=== PATIENT | female | born 1935 | race African-American/Black ===

== ENCOUNTER 2018-06-01 21:17 | Inpatient (IN) | payer OTHER ==
[~2018-06-01] VITALS: Ht 162.6 cm; Wt 84.9 kg
--- NOTE | 2018-06-01 21:25 | NUR ---
PT [id number] FROM HOME. Found Pt on the floor BS 26. 1 AMP of Glucagon given on route. Last BS 60. PT AxOX4. RR even and unlabored. PT pending eval from .
[2018-06-01] MEDS ORDERED: DEXTROSE 50%-WATER 50 ML DISP.SYRIN IV ONE (21:30)
--- NOTE | 2018-06-01 21:30 | NUR ---
Pt taken to CT.
[2018-06-01] MEDS ORDERED: DEXTROSE 50%-WATER 50 ML DISP.SYRIN ONE (21:37)
--- NOTE | 2018-06-01 21:40 | NUR ---
PT returned from CT. NAD.
[2018-06-01 22:06] LABS: BASOPHILS # (AUTO) 0.1 /CMM (0.0-0.2); BASOPHILS % (AUTO) 0.5 % (0.0-2.0); EOSINOPHILS % (AUTO) 0.4 % (0.0-6.0); HEMATOCRIT 33 % (33-45); HEMOGLOBIN 10.7 g/dL (11.5-14.8); LYMPHOCYTES # (AUTO) 2.2 /CMM (0.8-4.8); LYMPHOCYTES % (AUTO) 17.2 % (20.0-44.0); MEAN CORPUSCULAR HGB CONC 32 g/dl (31.0-36.0); MEAN CORPUSCULAR VOLUME 88 fL (82-100); MONOCYTES # (AUTO) 0.3 /CMM (0.1-1.30); MONOCYTES % (AUTO) 2.4 % (2.0-12.0); NEUTROPHILS # (AUTO) 10.1 /CMM (1.8-8.9); NEUTROPHILS % (AUTO) 79.5 % (43.0-81.0); PLATELET COUNT (AUTO) 499 /CMM (150-450); RED BLOOD CELL COUNT(AUTO) 3.78 MIL/uL (4.0-5.2); WHITE BLOOD COUNT (AUTO) 12.7 K/uL (4.3-11.0)
--- NOTE | 2018-06-01 22:21 | NUR ---
Repeated BS 163. PT resting in bed. VSS.
--- NOTE | 2018-06-01 23:02 | NUR ---
PT IS ASSIGNED TO [facility]#: [id number]
--- NOTE | 2018-06-01 23:05 | NUR ---
Patient is resting comfortably in bed with eyes closed. Easily aroused. VSS
[2018-06-01 23:24] LABS: APPEARANCE,URINE TURBID (CLEAR); BILIRUBIN,URINE NEGATIVE (NEGATIVE); BLOOD, URINE 3+ Ery/uL (NEGATIVE); COLOR,URINE YELLOW (YELLOW); KETONES,URINE TRACE (NEGATIVE); LEUKOCYTE ESTERASE ,URINE 2+ (NEGATIVE); NITRITE, URINE NEGATIVE (NEGATIVE); PROTEIN,URINE 2+ mg/dl (NEGATIVE); UGLUCOSE TRACE mg/dL (NEGATIVE); UROBILINOGEN,URINE 0.2 EU/dL (0.2)
--- NOTE | 2018-06-01 23:25 | NUR ---
Patient is resting comfortably in bed with eyes closed. NAD, VSS, awaiting test results.
[2018-06-01] MEDS ORDERED: TRAM50TA2 PO (23:30)
[2018-06-01] MEDS ORDERED: GLIP10TA11 PO (23:30)
[2018-06-01] MEDS ORDERED: ACET-2605 PO (23:30)
[2018-06-01] MEDS ORDERED: FAMO-131 PO (23:30)
[2018-06-01] MEDS ORDERED: METF-440 PO (23:30)
[2018-06-01] MEDS ORDERED: AMLO10TA6 PO (23:30)
[2018-06-01] MEDS ORDERED: HALO5TAB PO (23:30)
[2018-06-01] MEDS ORDERED: MONT10TA22 PO (23:30)
[2018-06-01] MEDS ORDERED: ASPI-605 PO (23:30)
[2018-06-01 23:31] LABS: BACTERIA,URINE Few /HPF (None Seen); RBC,URINE 81-100 /HPF (0-2); SQUAMOUS EPITHELIAL CELL,UR Few /HPF (None Seen); WBC,URINE 81-100 /HPF (0-3)
[2018-06-01 23:36] LABS: CALCIUM, SERUM 9.8 mg/dL (8.5-10.1); CARBON DIOXIDE 30 mmol/L (21-32); CHLORIDE 97 mmol/L (98-107); CREATININE 1.1 mg/dL (0.6-1.3); GLUCOSE 130 mg/dL (74-106); POTASSIUM 3.9 mmol/L (3.5-5.1); SODIUM SERUM 132 mmol/L (136-145); UREA NITROGEN, BLOOD 19 mg/dL (7-18)
[2018-06-01 23:42] LABS: ALANINE AMINOTRANSFERASE 19 U/L (12-78); ALBUMIN 2.1 g/dL (3.4-5.0); ALKALINE PHOSPHATASE 107 U/L (46-116); ASPARTATE AMINOTRANSFERASE 21 U/L (15-37); BILIRUBIN,DIRECT 0.2 mg/dL (0.0-0.2); BILIRUBIN,TOTAL 0.5 mg/dL (0.2-1.0); TOTAL PROTEIN, SERUM 8.6 g/dL (6.4-8.2)
[2018-06-01 23:46] LABS: ACETAMINOPHEN 2 ug/ml (10-30); SALICYLATE 1.6 mg/dL (2.8-20.0)
--- NOTE | 2018-06-01 23:55 | NUR ---
PT in bed resting, BS 92, easily aroused, VSS. NAD.
[2018-06-01 23:59] LABS: ALCOHOL, BLOOD 0 mg/dL (0-0)
[2018-06-02] VITALS (7 sets, daily range): BP systolic 118–149; BP diastolic 50–80
--- NOTE | 2018-06-02 00:14 | NUR ---
Report given to Hanny COMER for NEIL.
[2018-06-02] MEDS ORDERED: CEFTRIAXONE 1GM BAG (ER ONLY) 50 ML IV ONE (00:23)
[2018-06-02] MEDS: CEFTRIAXONE 1GM BAG (ER ONLY) 1 GM/50 ML PIGGYBACK IV ONE ×2 (00:30→00:50)
--- NOTE | 2018-06-02 00:45 | NUR ---
RN NOTES ADMITTED A 83 YEARS OLD FEMALE PT FROM ER VIA RNEY, AWAKE ALERT AND ORIENTED X3. DENIES PAIN, NAUSEA AND VOMITING AT THIS TIME. TELE MONITOR ATTACHED WHICH READS SINUS RHYTHM WITH PAC'S WITH HEART RATE AT 91. IV ACCESS ON LEFT FOREARM PATENT AND INTACT. COLOSTOMY LEAKING, BAG CHANGED. CURRIE CATH INTACT WITH HOPE COLORED URINE OUTPUT NOTED. KIN ASSESSMENT DONE, NOTED WITH PRESSURE ULCER ON BILATERAL BUTTOCKS, CLEANSED WITH NS AND COVERED WITH MEPILEX, PICTURE TAKEN AND FILED IN THE CHART. BED BATH GIVEN TO THE PATIENT. ALL ORDERS NOTED AND CARRIED OUT. WILL CONTINUE TO MONITOR PATIENT.
--- NOTE | 2018-06-02 00:45 | NUR ---
TRANSPORTED PT TO [facility] [id number] WITH RADHA COMER. ON THE RTALMOON WHILE BEING MONITORED
[2018-06-02] MEDS ORDERED: IV D5/0.45 NACL 1,000 ML IV PRN (00:50)
[2018-06-02] MEDS ORDERED: ACETAMINOPHEN 325 MG TABLET PO PRN (01:00)
[2018-06-02] MEDS ORDERED: Z GUARD REMEDY 2 OZ OINT TP PRN (01:00)
[2018-06-02] MEDS ORDERED: HALOPERIDOL 5 MG TABLET PO PRN (01:00)
[2018-06-02] MEDS ORDERED: MAGNESIUM HYDROXIDE 30 ML UDC PO PRN (01:00)
[2018-06-02] MEDS ORDERED: HYDROCODONE/APAP 5/325MG 1 EACH TABLET PO PRN (01:00)
[2018-06-02] MEDS ORDERED: DEXTROSE 50%-WATER 50 ML DISP.SYRIN IV PRN (01:00)
[2018-06-02] MEDS ORDERED: ZOLPIDEM TARTRATE 5 MG TABLET PO PRN (01:00)
[2018-06-02] MEDS ORDERED: MAG HYDROX/AL HYDROX/SIMETH 30 ML UDC PO PRN (01:00)
[2018-06-02] MEDS ORDERED: ONDANSETRON HCL/PF 4 MG/2 ML VIAL IVP PRN (01:00)
[2018-06-02] MEDS ORDERED: TRAMADOL HCL 50 MG TABLET PO PRN (01:00)
[2018-06-02] MEDS ORDERED: ENOXAPARIN SODIUM 40 MG/0.4 ML DISP.SYRIN SQ ONE (01:30)
[2018-06-02] MEDS: BLOOD SUGAR DIAGNOSTIC 1 EACH STRIP IN SCH ×6 (02:28→23:15)
[2018-06-02] MEDS: INSULIN REGULAR, HUMAN 100 UNIT/ML 3 ML VIAL SQ PRN ×3 (06:12→23:11)
--- NOTE | 2018-06-02 06:16 | NUR ---
tele/rn blood sugar check at 181 with 3 units coverage, patient with d5iv
--- NOTE | 2018-06-02 07:30 | NUR ---
LANDSCAPE GARDENER OPENING NOTES NO SIGNS OF DISTRESS AND DISCOMFORT NOTED. CURRIE CATH IN PLACE , COLOSTOMY NOT LEAKING. PT CLEAN AND DRY.SAFETY PRECAUTIONS OBSERVED. WILL CONTINUE TO MONITOR
--- NOTE | 2018-06-02 07:31 | NUR ---
RN NOTES PATIENT SLEPT WELL, NO SIGNS OF DISTRESS AND DISCOMFORT NOTED. CURRIE CATH INTACT, COLOSTOMY NOT LEAKING. KEPT CLEAN AND DRY, TURNED AND REPOSITIONED PER PROTOCOL. FALL PRECAUTION OBSERVED. ALL NEEDS ATTENDED. ENDORSED TO MORNING RN FOR CONTINUITY OF CARE.
[2018-06-02] MEDS: MONTELUKAST SODIUM (10MG) 10 MG TABLET PO SCH (08:52)
[2018-06-02] MEDS: FAMOTIDINE (20 MG) 20 MG TABLET PO SCH ×2 (08:52→17:51)
[2018-06-02] MEDS: AMLODIPINE BESYLATE 10 MG TABLET PO SCH (08:52)
[2018-06-02] MEDS: ASPIRIN EC 81 MG TABLET.DR PO SCH (08:53)
--- NOTE | 2018-06-02 15:02 | NUR ---
Social service consult requested by wound RN Pinky for stage 4 sacral ulcer. Pt. is a 83 year old female who was admitted to [facility] for hypoglycemia. Pt. is alert and oriented x 1 and cannot provide much history. MARCOS contacted Juan Ramon Glynn , contact center representative on pt's face sheet. Juan Ramon informed MARCOS that he will have the insurance territory manager call MARCOS back. MARCOS received a call from William, who informed MARCOS that pt. resides at a [facility] located at [address] [place] [address]. William informed MARCOS that pt's son Brien had looked at the facility prior to having pt. reside there. According to William, pt. arrived at their facility on May 03 from [facility] with the wounds. William also stated that pt. was receiving wound care but could not provide any detail information stating he will call MARCOS back. MARCOS received a call back from William requesting a signed release of information. MARCOS to get release of information signed by pt. and faxed to William. Addendum: 06/02/18 at 1546 by JERSON RODRÍGUEZ MARCOS informed pt's SOULEYMANE Gutierrez to get release of information signed by the pt. and let MARCOS know once signed. Signed Release of information to by faxed to William at . William's contact is .
--- NOTE | 2018-06-02 15:46 | NUR ---
William called MARCOS once again and stated that pt. was under palliative care at their facility. William stated, pt. is non-compliant and aggressive and did not follow her plan of car at their facility. According to William, pt's son Brien wants son to go back to [facility], [place]. MARCOS updated embedded case manager Rani Issa with MARCOS's conversation with William the administration/watch guard gate of the transitional independent living.
[2018-06-02] MEDS: DAKINS QUARTER STRENGTH (0.125%) 480 ML BOTTLE TOP SCH (16:52)
[2018-06-02] MEDS: IV NS 0.9% 1,000 ML IV PRN (16:57)
--- NOTE | 2018-06-02 17:20 | NUR ---
IV ROCEPHIN IS NOT AVAILABLE. CALLED PHARMACY . WILL SEND IT
[2018-06-02] MEDS ORDERED: CEFTRIAXONE 1 G in IV D5W 50 ML IV SCH (18:00)
--- NOTE | 2018-06-02 19:00 | NUR ---
PT A/O X1-2.NO SIGNS OF DISTRESS AND DISCOMFORT NOTED. CURRIE CATH IN PLACE OUTPUT 325ML , COLOSTOMY BAG CHANGED. PT KEPT CLEAN AND DRY.SAFETY PRECAUTIONS OBSERVED. WILL ENDORSE TO NEXT SHIFT FOR NEIL.
--- NOTE | 2018-06-02 19:00 | NUR ---
NEW IV LINE ON RIGHT HAND 20G .
--- NOTE | 2018-06-02 19:18 | NUR ---
CALLED SECOND TIME TO PHARMACY.
--- NOTE | 2018-06-02 19:30 | NUR ---
TELE/RN RECEIVE PATIENT AWAKE, ALERT, CONFUSED, COMFORTABLE, NO C/O PAIN, NO DISTRESS NOTED, CALL LIGHT IN REACH. WILL MONITOR.
[2018-06-02] MEDS ORDERED: ENOXAPARIN SODIUM 40 MG/0.4 ML DISP.SYRIN SQ SCH (22:00)
[2018-06-03] VITALS: BP 119/61
--- NOTE | 2018-06-03 | NUR ---
TELE/RN PATIENT IS AWAKE, ALERT, COMFORTABLE, NO DISTRESS NOTED, ALL NEEDS ATTENDED AT THIS TIME, WILL CONTINUE TO MONITOR.
[2018-06-03] MEDS: BLOOD SUGAR DIAGNOSTIC 1 EACH STRIP IN SCH ×5 (01:28→17:04)
[2018-06-03] MEDS: INSULIN REGULAR, HUMAN 100 UNIT/ML 3 ML VIAL SQ PRN ×3 (01:30→13:21)
[2018-06-03 04:00] VITALS: BP 141/64
[2018-06-03] MEDS: IV NS 0.9% 1,000 ML IV PRN ×2 (05:17→13:22)
[2018-06-03 07:22] LABS: BASOPHILS # (AUTO) 0.1 /CMM (0.0-0.2); BASOPHILS % (AUTO) 0.7 % (0.0-2.0); EOSINOPHILS % (AUTO) 0.6 % (0.0-6.0); HEMATOCRIT 30 % (33-45); HEMOGLOBIN 9.7 g/dL (11.5-14.8); LYMPHOCYTES # (AUTO) 4.3 /CMM (0.8-4.8); LYMPHOCYTES % (AUTO) 27.5 % (20.0-44.0); MEAN CORPUSCULAR HGB CONC 32 g/dl (31.0-36.0); MEAN CORPUSCULAR VOLUME 87 fL (82-100); MONOCYTES # (AUTO) 0.7 /CMM (0.1-1.30); MONOCYTES % (AUTO) 4.4 % (2.0-12.0); NEUTROPHILS # (AUTO) 10.4 /CMM (1.8-8.9); NEUTROPHILS % (AUTO) 66.8 % (43.0-81.0); PLATELET COUNT (AUTO) 477 /CMM (150-450); RED BLOOD CELL COUNT(AUTO) 3.48 MIL/uL (4.0-5.2); WHITE BLOOD COUNT (AUTO) 15.6 K/uL (4.3-11.0)
[2018-06-03 07:29] LABS: CALCIUM, SERUM 8.7 mg/dL (8.5-10.1); CARBON DIOXIDE 27 mmol/L (21-32); CHLORIDE 100 mmol/L (98-107); CREATININE 1.1 mg/dL (0.6-1.3); GLUCOSE 123 mg/dL (74-106); MAGNESIUM 1.6 mg/dL (1.8-2.4); PHOSPHORUS 2.3 mg/dL (2.5-4.9); POTASSIUM 3.5 mmol/L (3.5-5.1); SODIUM SERUM 136 mmol/L (136-145); UREA NITROGEN, BLOOD 15 mg/dL (7-18)
[2018-06-03 07:33] LABS: CHOLESTEROL 131 mg/dL (<200); HDL CHOLESTEROL 61 mg/dL (40-60); LDL 65 mg/dL (0-99); TRIGLYCERIDES 50 mg/dL (30-150)
--- NOTE | 2018-06-03 07:50 | NUR ---
WOUND CARE CONSULT WOUND CARE RECEIVED CONSULT FOR BILATERAL BUTTOCKS PRESSURE ULCERS. WOUND CARE WILL DEFER CONSULT AND ALL TREATMENT PLANS TO PLASTIC SURGICAL TEAM WHO ARE CURRENTLY FOLLOWING THIS PATIENT. PATIENT WITH ARYA AT 12, ALL PRESSURE ULCER PREVENTION MEASURES ARE CURRENTLY IN PLACE. PATIENT ON ISOFLEX GIANC[facility] SPECIALTY BED. WILL SEE PRN.
[2018-06-03 08:00] VITALS: BP 143/70
--- NOTE | 2018-06-03 08:00 | NUR ---
m/s e commerce developer: initial assessment received pt in bed awake, alert and oriented x 1-2 with confusion and disorientation to time and situation. reality orientation provided prn. hob elevated at 90 for breakfast. on isoflex. will continue to monitor.
[2018-06-03] MEDS: FAMOTIDINE (20 MG) 20 MG TABLET PO SCH ×2 (08:30→17:05)
[2018-06-03] MEDS: MONTELUKAST SODIUM (10MG) 10 MG TABLET PO SCH (08:30)
[2018-06-03] MEDS: ASPIRIN EC 81 MG TABLET.DR PO SCH (08:30)
[2018-06-03] MEDS: AMLODIPINE BESYLATE 10 MG TABLET PO SCH (08:30)
[2018-06-03] MEDS: Magnesium 1GM/D5W 100ML PREMIX 100 ML IV SCH ×2 (10:27→11:38)
--- NOTE | 2018-06-03 10:31 | NUR ---
COVERING PRIMARY NURSE YOKASTA Cm magnesium today 1.6 administered 1gm magnesium IVPB as ordered.
--- NOTE | 2018-06-03 10:46 | NUR ---
m/s photographer news: plastic surgeon kenneth (store assistant) here with verbal order to change her stahl catheter and send urine with culture. orders read back and carried out and acknowledged.
--- NOTE | 2018-06-03 11:00 | NUR ---
m/s graduate rn: notes tx done to sacral/buttocks open wound (s/p debridement yesterday). inserted new f/c as ordered, prashant. well. old stahl removed. turned and repositioned. will continue to monitor.
--- NOTE | 2018-06-03 11:38 | NUR ---
COVERING PRIMARY NURSE YOKASTA Cm magnesium today 1.6 administered 1gm magnesium IVPB as ordered, total 2gm given.
[2018-06-03] MEDS: DAKINS QUARTER STRENGTH (0.125%) 480 ML BOTTLE TOP SCH (11:55)
--- NOTE | 2018-06-03 12:00 | NUR ---
m/s mobile patrol officer: notes turned and repositioned, kept comfortable.
[2018-06-03] MEDS ORDERED: K PHOS NEUTRAL 250 MG TABLET PO ONE (14:30)
--- NOTE | 2018-06-03 14:32 | NUR ---
m/s mental health coordinator: notes rajan ellison called and informed me of positive mrsa both nares. isolation protocol initiated; bactroban ordered. cn made aware. will continue to monitor.
[2018-06-03 14:37] LABS: APPEARANCE,URINE SL CLOUDY (CLEAR); BILIRUBIN,URINE NEGATIVE (NEGATIVE); BLOOD, URINE 3+ Ery/uL (NEGATIVE); COLOR,URINE YELLOW (YELLOW); KETONES,URINE NEGATIVE (NEGATIVE); LEUKOCYTE ESTERASE ,URINE 3+ (NEGATIVE); NITRITE, URINE NEGATIVE (NEGATIVE); PROTEIN,URINE 1+ mg/dl (NEGATIVE); UGLUCOSE NEGATIVE (NEGATIVE); UROBILINOGEN,URINE 0.2 EU/dL (0.2)
[2018-06-03 14:51] LABS: BACTERIA,URINE Moderate /HPF (None Seen); SQUAMOUS EPITHELIAL CELL,UR Few /HPF (None Seen)
--- NOTE | 2018-06-03 15:00 | NUR ---
m/s van helper: notes case management informed me and cn that pt is leaving at 1700 to go to [facility]. ruma (son) notified and made aware.
--- NOTE | 2018-06-03 15:50 | NUR ---
m/s engraver: notes report given to ed (rn) for continuity of care.
[2018-06-03 16:00] VITALS: BP 128/85
--- NOTE | 2018-06-03 17:00 | NUR ---
m/s wing scorer: notes bs [id number]. pt resting comfortable in bed. awaiting for ambulance. will continue to monitor.
--- NOTE | 2018-06-03 17:30 | NUR ---
m/s psychologist chief: notes awaiting for ambulance. f/u made to inocencio (case management) and will f/u.
--- NOTE | 2018-06-03 17:50 | NUR ---
m/s educational psychology teacher: notes h/l removed with tip intact. still awaiting for ambulance to pick her up.
--- NOTE | 2018-06-03 18:00 | NUR ---
m/s aviation mechanic: notes f/u made to christopher, spoke to briseyda and informed me that they are running late for another 30 mins.
--- NOTE | 2018-06-03 18:45 | NUR ---
m/s nursing informatics analyst: notes ambulance here and report given to one of the crew.
--- NOTE | 2018-06-03 19:04 | NUR ---
m/s farmhand: discharged discharged to snf in stable condition via ambulance.
[2018-06-03] MEDS ORDERED: MUPIROCIN OINT 2% 22 GM TUBE SCH (21:00)
== END 2018-06-03 19:08 | DRG 981 ==
LOC: ER 21:19 → TELE 23:09 → MED 06-03 08:21
PROVIDERS: ADMIT Nurse Practitioner Acute Care; ATTEND Nurse Practitioner Acute Care
PROC: 0KBP0ZZ Excision of Left Hip Muscle, Open Approach (ICD-10-PCS; principal; 2018-06-03)
PROC: 0KBN0ZZ Excision of Right Hip Muscle, Open Approach (ICD-10-PCS; 2018-06-03)
DX: E11.649 Type 2 diabetes mellitus with hypoglycemia without coma (principal); L89.154 Pressure ulcer of sacral region, stage 4; L89.324 Pressure ulcer of left buttock, stage 4; L89.314 Pressure ulcer of right buttock, stage 4; G93.41 Metabolic encephalopathy; N39.0 Urinary tract infection, site not specified; E87.1 Hypo-osmolality and hyponatremia; N17.0 Acute kidney failure with tubular necrosis; D64.9 Anemia, unspecified; D72.829 Elevated white blood cell count, unspecified; I10 Essential (primary) hypertension; E88.09 Other disorders of plasma-protein metabolism, not elsewhere classified; I48.91 Unspecified atrial fibrillation; M81.0 Age-related osteoporosis without current pathological fracture; Z79.82 Long term (current) use of aspirin; Z79.84 Long term (current) use of oral hypoglycemic drugs; D47.3 Essential (hemorrhagic) thrombocythemia; F03.90 Unspecified dementia, unspecified severity, without behavioral disturbance, psychotic disturbance, mood disturbance, and anxiety
CPT/HCPCS: 36415; 70450-TC; 71045-TC; 72125-TC; 80048-TC; 80061-TC; 80076-TC; 81000-TC; 82962-TC; 83605-TC; 83735-TC; 84100-TC; 84134-TC; 84484-TC; 85025-TC; 85730-TC; 87040-TC; 87070-TC; 87081-TC; 87086-TC; 87186-TC; 93307-TC; A4606; A6253; A6403; G0378; G0480; J0696; J1650; J1815; J3475; J3490; J7030; J7042; J7060; Z7610